=== PATIENT | male | born 1990 | race Caucasian/White ===

== ENCOUNTER 2017-08-19 12:13 | Observation (INO) | payer BC, SELFPAY ==
[~2017-08-19] VITALS: Ht 185.4 cm; Wt 205.0 kg
[2017-08-19 12:50] LABS: BASOPHILS ABSOLUTE AUTO 0.03 K/mm3 (0.00-0.23); BASOPHILS PERCENT AUTO 0 % (0-2); EOSINOPHILS ABSOLUTE AUTO 0.01 K/mm3 (0.00-0.68); EOSINOPHILS PERCENT AUTO 0 % (0-6); Hematocrit 44.1 % (37.0-53.0); Hemoglobin 14.5 g/dL (13.5-17.5); IMMATURE GRAN ABSOLUTE AUTO 0.09 K/mm3 (0.00-0.10); IMMATURE GRAN PERCENT AUTO 1 % (0-1); LYMPHOCYTES ABSOLUTE AUTO 0.83 K/mm3 (0.84-5.20); LYMPHOCYTES PERCENT AUTO 6 % (21-46); MONOCYTES ABSOLUTE AUTO 0.94 K/mm3 (0.16-1.47); MONOCYTES PERCENT AUTO 6 % (4-13); Mean Corpuscular HGB 29.4 pg (26.0-34.0); Mean Corpuscular HGB Conc 32.9 g/dL (31.5-36.5); Mean Corpuscular Volume 89 fL (80-100); Mean Platelet Volume 11.1 fL (9.1-12.4); NEUTROPHILS PERCENT AUTO 87 % (41-73); Platelet Count 156 K/mm3 (150-400); RDW Coefficient Variation 11.8 % (11.7-14.2); RDW Standard Deviation 38.1 fL (35.1-46.3); Red Blood Cell Count 4.94 M/mm3 (4.30-5.90)
[2017-08-19 13:03] LABS: Alanine Aminotransfer (ALT/SGP 47 U/L (12-78); Albumin/Globulin Ratio 1.3 (0.8-1.8); Alk Phos 77 U/L (50-136); Anion Gap 7 mmol/L (6-16); Aspartate Aminotrans (AST/SGOT 35 U/L (12-37); Bilirubin, Total 0.5 mg/dL (0.1-1.0); Blood Urea Nitrogen 17 mg/dL (8-24); Bun/Creatinine Ratio 19.6 (12.0-20.0); CO2, Blood 28 mmol/L (21-32); Calcium, Blood 8.8 mg/dL (8.5-10.1); Chloride, Blood 106 mmol/L (98-108); Creatinine, Blood 0.87 mg/dL (0.60-1.20); Globulin, Blood 3.1 g/dL (2.2-4.0); Glomerular Filtration Rate >60 (60-); Glucose, Blood 94 mg/dL (70-99); Sodium, Blood 141 mmol/L (136-145); Total Protein, Blood 7.1 g/dL (6.4-8.2)
[2017-08-21] MEDS ORDERED: HYDR1TAB94 PO (09:01)
== END 2017-08-21 10:20 | disposition home or self-care (01) ==
LOC: ER 12:13 → SURS 12:14
PROVIDERS: Emergency Medicine; Orthopaedic Surgery
PROC: 0JBN0ZZ Excision of Right Lower Leg Subcutaneous Tissue and Fascia, Open Approach (ICD-10-PCS; principal; 2017-08-20 16:30)
PROC: 0JQN0ZZ Repair Right Lower Leg Subcutaneous Tissue and Fascia, Open Approach (ICD-10-PCS; principal; 2017-08-20 16:30)
DX: S81.811A Laceration without foreign body, right lower leg, initial encounter (principal); Z98.890 Other specified postprocedural states; X58.XXXA Exposure to other specified factors, initial encounter; W22.8XXA Striking against or struck by other objects, initial encounter
CPT/HCPCS: 13121; 13122; 36415; 73590; 73630; 80053; 85025; 86850; 86900; 86901; 90471; 90714; 96361; 96374; 96375; 96376; 97116; 97161; 99285; G0378; G8978; G8979; G8980; J0690; J1100; J1170; J1885; J2250; J2270; J2405; J3010; J7030; J7120